=== PATIENT | male | born 1995 | race African-American/Black ===

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

== ENCOUNTER → 2017-01-27 | Outpatient (CLI) | payer OTHER | LOC: COL.RAD 07:35 | DX: M79.641 Pain in right hand (principal); S62.394A Other fracture of fourth metacarpal bone, right hand, initial encounter for closed fracture; S62.396A Other fracture of fifth metacarpal bone, right hand, initial encounter for closed fracture ==

== ENCOUNTER → 2017-07-23 | Outpatient (CLI) | payer OTHER | LOC: COL.RAD 08:58 | DX: M79.671 Pain in right foot (principal) | CPT/HCPCS: A9503 ==

== ENCOUNTER → 2018-04-09 | Outpatient (CLI) | payer OTHER | LOC: COL.RAD 12:16 | DX: S73.192A Other sprain of left hip, initial encounter (principal); R60.0 Localized edema | CPT/HCPCS: A9585; Q9967 ==

== ENCOUNTER → 2018-04-16 | Outpatient (CLI) | payer OTHER | LOC: COL.RAD 07:21 | DX: S73.102A Unspecified sprain of left hip, initial encounter (principal) | CPT/HCPCS: J3301; Q9967 ==

== ENCOUNTER 2018-05-21 14:55 | Emergency (ER) | payer OTHER ==
[~2018-05-21] VITALS: Ht 208.3 cm; Wt 111.4 kg
[2018-05-21 14:57] VITALS: TEMP 98
[2018-05-21] MEDS ORDERED: OMEGA-3 1000 MG1 CAP PO (15:00)
[2018-05-21 15:13] LABS: BASO # 0.1 (0.0-0.2); BASO % 0.6 % (0.0-2.0); EOS % 0.1 % (0-4.0); GRAN # 5.4 (1.4-6.5); GRAN % 60.4 % (42.2-75.2); HEMATOCRIT 41.2 % (36.0-47.0); HEMOGLOBIN 13.4 g/dl (12.5-16.1); LYMPH # 2.6 (1.2-3.4); LYMPH % 29.4 % (20.0-51.0); MEAN CELL VOLUME 89 fl (80.0-95.0); MEAN CORPUSCULAR HEMOGLOBIN 29 pg (26.0-32.0); MEAN CORPUSCULAR HGB CONC 33 g/dl (33.0-37.0); MEAN PLATELET VOLUME 11.3 fl (7.4-10.4); MONO # 0.8 (0.1-0.6); MONO % 9.3 % (1.7-9.3); PLATELET COUNT 215 K/mm3 (130-400); RED BLOOD COUNT 4.65 M/mm3 (4.20-5.60); REDCELL DISTRIBUTION WIDTH-CV 13.5 % (11.5-14.5)
[2018-05-21 15:31] LABS: ALANINE AMINOTRANSFERASE 46 U/L (21-72); ALBUMIN 4.2 gm/dL (3.5-5.0); ALKALINE PHOSPHATASE 61 U/L (50-136); ANION GAP 11 mmol/L (7-16); AST,SGOT 41 U/L (15-37); BILIRUBIN,TOTAL 0.6 mg/dL (0.0-1.0); BLOOD UREA NITROGEN 20 mg/dL (9-20); CALCIUM 8.7 mg/dL (8.4-10.2); CARBON DIOXIDE 24 mmol/L (22-30); CHLORIDE 102 mmol/L (98-107); CREATINE KINASE 747 U/L (55-170); CREATININE, serum 1.42 mg/dL (0.66-1.25); GLUCOSE 110 mg/dL (74-106); POTASSIUM 3.8 mmol/L (3.4-5.0); SODIUM 137 mmol/L (137-145); TOTAL PROTEIN 7.7 gm/dL (6.4-8.2)
[2018-05-21 15:42] LABS: TROPONIN-I < 0.012 ng/mL (0.000-0.034)
[2018-05-21 17:50] VITALS: BP 133/79; PULSE 54
== END 2018-05-21 17:50 | disposition home or self-care (01) ==
LOC: COL.ER 14:55
PROVIDERS: Emergency Medicine
DX: R55 Syncope and collapse (principal)
CPT/HCPCS: J7030

== ENCOUNTER → 2018-05-26 | Outpatient (CLI) | payer OTHER ==
[~2018-05-26] MED LIST: OMEGA-3 1000 MG1 CAP PO
== END ==
LOC: COL.VAS 10:38
DX: R55 Syncope and collapse (principal)